=== PATIENT | female | born 1935 | race Caucasian/White ===

== ENCOUNTER 2016-04-29 10:40 | Emergency (ER) | payer SELFPAY ==
[~2016-04-29] VITALS: Ht 144.8 cm; Wt 51.0 kg
[2016-04-29 10:44] VITALS: Ht 144.8 cm; Wt 51.0 kg
[2016-04-29] MEDS ORDERED: KETOROLAC 15 MG INJ IM STA (10:55)
[2016-04-29] MEDS ORDERED: LEVO125T75 PO (11:15)
[2016-04-29] MEDS ORDERED: PRED1TAB2 PO (11:16)
--- NOTE | 2016-04-29 11:20 | RADRPT ---
PROCEDURE: XR right Shoulder. CLINICAL INDICATION: Right shoulder pain TECHNIQUE: Two views of the right shoulder are available for review. COMPARISON: None available FINDINGS: There is no evidence of acute fracture though no external rotation radiograph is provided. There is no dislocation. 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 Visualized right lung is clear. IMPRESSION: 1. No radiographic evidence of acute osseous abnormality. Note is made that the greater tuberosity is not well assessed due to lack of an external rotation radiograph. 2. Moderate acromioclavicular osteoarthrosis. RPTAT: [facility] .Riaz Donovan MD, MD Date Time Electronically viewed and signed by .Riaz Donovan MD, MD on 04/29/2016 11:20 .K/
[2016-04-29] MEDS ORDERED: OXYC-279 PO (11:31)
[2016-04-29] MEDS ORDERED: IBUP-1542 PO (11:31)
[2016-04-29 12:38] VITALS: BP 110/62; PULSE 65; RESP 18
--- NOTE | 2016-04-29 14:47 | ERD ---
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 She had no fall, no complaints of paresis or paresthesias, no chest pain or shortness of breath, no recent trauma, no fevers or chills, no complaints of headache or blurry vision. ROS All systems reviewed and are negative except as per history of present illness. Medications Home Meds Active Scripts Oxycodone HCl/Acetaminophen (Percocet 5-325 mg Tablet) 1 Each Tablet, 1 EACH PO TID for PAIN, #9 TAB Prov:OZZY PATRICK MD 04/29/16 Ibuprofen* (Motrin*) 600 Mg Tab, 600 MG PO Q8 for PAIN AND/OR INFLAMMATION, #30 TAB Prov:OZZY PATRICK MD 04/29/16 Reported Medications Prednisone* (Prednisone*) 1 Mg Tablet, 0.5 MG PO DAILY, TAB 04/29/16 Levothyroxine Sodium* (Levothyroxine Sodium*) 125 Mcg Tablet, 125 MCG PO BEFORE BREAKFAST, #30 TAB 04/29/16 Allergies Allergies: Coded Allergies: No Known Allergy (Unverified , 04/29/16) PMhx/Soc Hypothyroidism History of Surgery: No Anesthesia Reaction: No Hx Neurological Disorder: No Hx Respiratory Disorders: No Hx Cardiac Disorders: No Hx Psychiatric Problems: No Hx Miscellaneous Medical Probl: Yes Hx Alcohol Use: No Hx Substance Use: No Hx Tobacco Use: No Smoking Status: Never smoker FmHx Family History: No diabetes Physical Exam Vitals Vital Signs Date Time Temp Pulse Resp B/P Pulse Ox O2 Delivery O2 Flow Rate FiO2 04/29/16 12:38 65 18 110/62 97 Room Air 04/29/16 10:44 97.5 99 18 98/57 97 Physical Exam GENERAL: Well-developed, well-nourished, well-hydrated, in no apparent distress , looks nontoxic in appearance HEENT: Moist mucous membranes, pink conjunctiva, no cervical spine tenderness or step-off deformities, no goiter, no jaundice or icterus, extraocular movements intact without pain. No submandibular induration, and no pharyngeal erythema NEURO: Alert and oriented 3, cranial nerves II through XII intact bilaterally, pupils equal round reactive to light, no focal deficits or facial asymmetry, sensation intact distally Strength 5/5 in upper and lower extremities bilaterally CARDIAC: Regular rate and rhythm, no murmurs rubs or gallops LUNGS: Clear bilaterally no wheezing crackles or stridor ABDOMEN: Soft nontender, no guarding, no rigidity, no rebound, no psoas sign no obturator sign. Normoactive bowel sounds SKIN: Warm and dry to touch, no abrasions, contusions, or hematomas, no lacerations, no ecchymosis, no target lesions, and without ulcers EXTREMITIES: Positive soft tissue tenderness over the right anterior lateral shoulder with decreased range of motion secondary to pain, passive range of motion intact fully without difficulty, no soft tissue erythema or induration noted. Distal pulses equal and bilateral PSYCH: Normal affect without agitation or irritability Results 24 hrs Current Medications Medications (Trade) Dose Ordered Sig/Abimael Route PRN Reason Start Time Stop Time Status Last Admin Dose Admin Ketorolac Tromethamine (Toradol) 15 mg ONCE STAT IM 04/29/16 10:55 04/29/16 10:56 DC 04/29/16 11:10 Procedures/MDM I administered Toradol 50 mg intramuscular injection with good pain control. Patient's right upper extremity was placed in a shoulder immobilizer for comfort and supportive measures. Splint Assessment: Neurovascularly intact post splint placement with good fit. X-ray right shoulder 3V Interpreted by me: Bones: No fracture Joints: Positive arthritic changes Foreign body: None Given the intensity of pain and physical examination I do suspect soft tissue, muscular, or ligamentous injury. Patient most likely suffered a rotator cuff muscle tear which will require MRI for definitive diagnosis. This can be performed as an outpatient and I recommended she follow-up with her PMD for orthopedic consultation. In the meantime she will be splinted in a shoulder immobilizer and prescribed NSAIDs. Family who was at the bedside understood instructions, and kindly agreed to outpatient management Differential diagnoses considered, included but not limited to acute coronary syndrome, pulmonary embolism, aortic dissection, abdominal aortic aneurysm, sepsis, stroke, meningitis, encephalitis, pneumonia, appendicitis, cholecystitis , bowel obstruction, pyelonephritis, nephrolithiasis, cystitis, as well as metabolic, hematologic, and electrolyte abnormalities. As well as abscess, cellulitis, fractures, and dislocations. Patient feels much better at this time, and vital signs are normal, symptoms have improved. I did give strict instructions to return to the ED if symptoms continue or worsen, patient will otherwise follow-up with primary care physician. Patient understood instructions and agreed to plan. Departure Diagnosis: Primary Impression: Rotator cuff (capsule) sprain Encounter type: initial encounter Laterality: right Qualified Code: S43.421A - Sprain of right rotator cuff capsule, initial encounter Condition: Good Patient Instructions: Rotator Cuff Tear, Shoulder Sprain OZZY PATRICK MD Apr 29, 2016 14:47
== END 2016-04-29 12:40 | disposition home or self-care (01) ==
LOC: E/R 10:40
DX: S43.421A Sprain of right rotator cuff capsule, initial encounter (principal); R40.2252 Coma scale, best verbal response, oriented, at arrival to emergency department; R40.2142 Coma scale, eyes open, spontaneous, at arrival to emergency department; R40.2362 Coma scale, best motor response, obeys commands, at arrival to emergency department; X50.0XXA Overexertion from strenuous movement or load, initial encounter; Y92.9 Unspecified place or not applicable
CPT/HCPCS: 29105; 73030; 96372; 99284; J1885